=== PATIENT | female | born 1970 | race Caucasian/White ===

== ENCOUNTER 2019-05-16 12:44 | Emergency (ER) | payer BC, OTHER ==
[2019-05-16] MEDS ORDERED: SODIUM CHLORIDE 0.9% 1000ML 1,000 ML IVS ONE (14:39)
[2019-05-16] MEDS ORDERED: ACETYLCYSTEIN 20 % 6,000 MG/30 ML VIAL PO ONE (14:39)
--- NOTE | 2019-05-16 15:52 | CT ---
EXAM DESCRIPTION: CT ABDOMEN AND PELVIS WITH CONTRAST CLINICAL HISTORY: rlq pain, possible appy COMPARISON: None Available. TECHNIQUE: CT of the abdomen and pelvis are performed during IV bolus administration of routine adult dose of nonionic iodinated IV contrast. No oral contrast. FINDINGS: In the lower chest, the lung bases are clear. Heart size is normal. CT abdomen The liver, spleen, pancreas, gallbladder, adrenal glands, stomach and kidneys are normal in appearance. No inflammation around the pancreas. No renal stones or hydronephrosis. No bowel dilatation to suggest obstruction. No free air or free fluid. CT pelvis Posterior wall enhancement of the appendix. Appendiceal diameter measures up to 9 mm. Fluid distention is not a prominent feature. No appendicolith is evident. Strandy inflammatory changes are seen around the appendix in the periappendiceal fat with thickening of the adjacent fascia. Findings are consistent with mild or early appendicitis. No fluid collection to suggest perforation or abscess formation. No inflammation around the terminal ileum or sigmoid colon. Bladder and distal ureters are negative for stones. Normal enhancement of pelvic vessels. No inguinal or lower pelvic adenopathy. Small uterine fibroid at the right upper fundal region. Uterus including cervix otherwise unremarkable. Normal left ovary. Right ovary contains a physiologic-appearing cyst which requires no further imaging follow-up 2.2 cm. Normal enhancement of pelvic vessels. Bone window images are negative for fracture or lytic lesion. Coronal and sagittal reformatted images confirm the findings. IMPRESSION: Appendiceal wall enhancement with mild surrounding inflammation consistent with early uncomplicated appendicitis. This exam was performed according to our departmental dose-optimization program, which includes automated exposure control, adjustment of the mA and/or kV according to patient size and/or use of iterative reconstruction technique. Total DLP equals 343.95 mGycm. Electronically signed by: Vincent Oswald MD 05/16/2019 3:51 PM [facility]
[2019-05-16] MEDS ORDERED: PIPERACILLIN/TAZOBACTAM 3.375 GM in SODIUM CHLORIDE 0.9% 100ML 100 ML IVPB ONE (16:06)
[2019-05-16] MEDS ORDERED: SODIUM CHLORIDE 0.9% 100ML 100 ML IVPB ONE (16:09)
[2019-05-16] MEDS ORDERED: PIPERACILLIN/TAZOBACTAM 3.375 GM VIAL IVPB ONE (16:09)
--- NOTE | 2019-05-16 16:09 | ED.PDOC ---
History of Present Illness - General Chief Complaint: Abdominal Pain Stated Complaint: Abdominal discomfort Time Seen by Provider: 05/16/19 12:46 Source: patient Exam Limitations: no limitations - History of Present Illness Initial Comments: the patient is a 49-year-old female presenting to emergency room secondary to 3 days of abdominal pain. It started initially as a generalized abdominal pain but has gradually localized to the right lower quadrant. She does have some guarding. No definite rebound but there are some peritoneal signs. No palpable mass. No fever. No nausea or vomiting. Mild decrease in appetite. No urinary symptoms. Timing/Duration: other - 3 days Severity: moderate Improving Factors: nothing Worsening Factors: nothing Associated Symptoms: loss of appetite, malaise Allergies/Adverse Reactions: Allergies NO KNOWN ALLERGY Allergy (Verified 10/29/14 23:26) Home Medications: Ambulatory Orders [place] Thyroid 10/29/14 Sulfa/Trimeth 800/160 (Ds) Tab [Bactrim DS Tab] 1 ea PO BID #10 tab 10/30/14 Review of Systems - Review of Systems Constitutional: States: malaise EENTM: States: no symptoms reported Respiratory: States: no symptoms reported Cardiology: States: no symptoms reported Gastrointestinal/Abdominal: States: see HPI Genitourinary: States: no symptoms reported Musculoskeletal: States: no symptoms reported Skin: States: no symptoms reported Neurological: States: no symptoms reported Endocrine: States: no symptoms reported All other Systems: No Change from Baseline Past Medical History (General) - Patient Medical History Hx Stroke: No Hx Congestive Heart Failure: No Hx Thyroid Disease: Yes Hx Diabetes: No Hx MRSA: No Surgical History: other - Vaccination History Hx Tetanus, Diphtheria Vaccination: No Hx Influenza Vaccination: No Hx Pneumococcal Vaccination: No - Social History Hx Tobacco Use: No Hx Alcohol Use: No Hx Substance Use: No Hx Substance Use Treatment: No Hx Depression: No - Female History Patient is a Female of Child Bearing Age (10 -59 yrs old): Yes Patient : No Family Medical History - Family History Father Family History: Unknown Living Status: Still Living Physical Exam - Physical Exam General Appearance: Alert, Comfortable, No apparent distress Eye Exam: bilateral normal Ears, Nose, Throat: hearing grossly normal, normal ENT inspection Neck: full range of motion, supple Respiratory: lungs clear, normal breath sounds, no respiratory distress, no accessory muscle use Cardiovascular/Chest: normal peripheral pulses, regular rate, rhythm, no edema Peripheral Pulses: radial,right: 2+, radial,left: 2+ Gastrointestinal/Abdominal: soft, other - see history of present illness Rectal Exam: deferred Back Exam: no CVA tenderness, no vertebral tenderness Extremity: non-tender, normal inspection, no pedal edema, normal capillary refill Neurologic: legal transcriber II-XII nml as tested, alert, normal mood/affect, oriented x 3 Skin Exam: normal color Comments: Vital Signs - 24 hr 05/16/19 05/16/19 12:47 12:49 Temperature 97.2 F L Pulse Rate [ 71 71 Monitor] Respiratory 18 Rate Blood Pressure 129/82 [L brachial] O2 Sat by Pulse 98 Oximetry Progress - Progress Progress: 05/16/19 16:09 the patient's a 49-year-old female presenting with what appears to be early appendicitis. The patient is being started on Zosyn. This has been discussed with the patient and the patient and her are trying to decide where to go for a surgical evaluation. Laboratory work and CT scan are reassuring otherwise. the patient has been accepted to [facility] for surgical evaluation. the patient is not compromised for driving, Nor has she received any pain medications. She will be allowed to go by private vehicle. The IV will be left in place as the patient was a significantly difficult IV stick and she is very low risk for abuse. whether or not the IV is used by the receiving facility is of course up to the receiving facility. the patient is to go to the accepting hospital directly tonight for admittance and surgical evaluation. She is not to eat or drink anything in case she is taken back to surgery tonight. - Results/Orders Results/Orders: CT scan abdomen and pelvis with contrast shows mild appendicitis. No evidence of any abscess or perforation. She also appears to have a benign 2.2 cm ovarian cyst on the right side. See report for details. Laboratory Results - last 24 hr 05/16/19 05/16/19 05/16/19 12:20 13:40 13:55 WBC RBC Hgb Hct MCV MCH MCHC RDW Plt Count MPV Absolute Neuts (auto) Absolute Lymphs (auto) Absolute Monos (auto) Absolute Eos (auto) Absolute Basos (auto) Neutrophils % Lymphocytes % Monocytes % Eosinophils % Basophils % Sodium 138 Potassium 3.5 L Chloride 102 Carbon Dioxide 24 Anion Gap 15.5 BUN 9 Creatinine 0.59 L BUN/Creatinine Ratio 15.3 Random Glucose 84 Serum Osmolality 273.6 L Lactic Acid Calcium 9.2 Total Bilirubin 0.8 AST 17 ALT 13 Alkaline Phosphatase 61 Creatine Kinase 59 CK-MB (CK-2) 1.2 CK-MB (CK-2) % Not Reportable Troponin I < 0.02 Serum Total Protein 7.2 Albumin 4.0 Globulin 3.2 Albumin/Globulin Ratio 1.3 Amylase 38 Lipase 32 Urine Color Yellow Urine Appearance Clear Urine pH 7.0 Ur Specific [place] 1.010 Urine Protein Negative Urine Glucose (UA) Negative Urine Ketones Negative Urine Blood Small H Urine Nitrite Negative Urine Bilirubin Negative Urine Urobilinogen 0.2 Ur Leukocyte Esterase Small H Urine RBC 1-3 Urine WBC 3-5 H Ur Epithelial Cells 5-10 Urine Bacteria Rare Urine HCG, Qual Negative 05/16/19 05/16/19 13:55 13:55 WBC 6.7 RBC 4.26 Hgb 13.3 Hct 39.2 MCV 91.9 MCH 31.3 H MCHC 34.0 RDW 13.2 Plt Count 186 MPV 8.7 Absolute Neuts (auto) 3.80 Absolute Lymphs (auto) 2.10 Absolute Monos (auto) 0.60 Absolute Eos (auto) 0.10 Absolute Basos (auto) 0.00 Neutrophils % 57.4 Lymphocytes % 31.2 Monocytes % 9.2 H Eosinophils % 1.6 Basophils % 0.6 Sodium Potassium Chloride Carbon Dioxide Anion Gap BUN Creatinine BUN/Creatinine Ratio Random Glucose Serum Osmolality Lactic Acid 1.2 Calcium Total Bilirubin AST ALT Alkaline Phosphatase Creatine Kinase CK-MB (CK-2) CK-MB (CK-2) % Troponin I Serum Total Protein Albumin Globulin Albumin/Globulin Ratio Amylase Lipase Urine Color Urine Appearance Urine pH Ur Specific [place] Urine Protein Urine Glucose (UA) Urine Ketones Urine Blood Urine Nitrite Urine Bilirubin Urine Urobilinogen Ur Leukocyte Esterase Urine RBC Urine WBC Ur Epithelial Cells Urine Bacteria Urine HCG, Qual Departure - Departure Clinical Impression: Appendicitis Qualifiers: Appendicitis type: acute appendicitis Acute appendicitis type: with localized peritonitis Appendicitis gangrene presence: unspecified whether gangrene present Appendicitis perforation presence: without perforation Appendicitis abscess presence: without abscess Qualified Code(s): K35.30 - Acute appendicitis with localized peritonitis, without perforation or gangrene Disposition: Transfer to Hospital Condition: Fair Departure Forms: ED Discharge - Pt. Copy, Patient Portal Self Enrollment Referrals: Werner Clark III, MD [Primary Care Provider] - 1-2 Weeks Home Medications: Ambulatory Orders [place] Thyroid 10/29/14 Sulfa/Trimeth 800/160 (Ds) Tab [Bactrim DS Tab] 1 ea PO BID #10 tab 10/30/14 Transfer to Outside Facility - Transfer Information Decision to Transfer Date: 05/16/19 Decision to Transfer Time: 16:00 Reason for Transfer: required specialist not available Accepting Provider:: dr solis Accepting Facility: [facility]
[2019-05-16 18:27] VITALS: BP 115/82; TEMP 97.9; O2SAT 99
== END 2019-05-16 18:00 | disposition short-term general hospital (02) ==
LOC: ER 12:44
DX: K35.30 Acute appendicitis with localized peritonitis, without perforation or gangrene (principal); N83.201 Unspecified ovarian cyst, right side; E07.9 Disorder of thyroid, unspecified
CPT/HCPCS: 74177; 80053; 81001; 81025; 82150; 82550; 82553; 83605; 83690; 84484; 85025; 87086; J2543; J7030; J7050